=== PATIENT | female | born 1995 | race Hispanic/Latino ===

== ENCOUNTER 2019-01-02 12:31 | Emergency (ER) | payer SELFPAY ==
[2019-01-02 13:09] LABS: Urine Blood NEGATIVE (NEG); Urine Glucose NEGATIVE (NEG); Urine Protein TRACE (NEG); Urine Specific Gravity 1.025 (1.005-1.030)
[2019-01-02 13:57] LABS: Urine Bacteria >50 /HPF (<20); Urine Culture Reflex Order NOT NEEDED; Urine RBC <5 /HPF (NONE SEEN)
--- NOTE | 2019-01-02 14:09 | ER ---
Nurse's Notes [facility] Name: Ирина Lamar Age: 23 yrs Sex: Female : 1995 Arrival Date: 01/02/2019 Time: 12:34 Bed 16 Private MD: None, None Diagnosis: Nausea and vomiting;Diarrhea, unspecified;Left groin pain Presentation: 01/02 12:40 Presenting complaint: Patient states: Abd pain for 3 days, vomiting and diarrhea la1 started today, denies fevers. Has not had menstrual cycle in 4 weeks, took home preg test 3 days ago which was negative. Transition of care: patient was not received from another setting of care. Onset of symptoms was January 02, 2019. Risk Assessment: Do you want to hurt yourself or someone else? Patient reports no desire to harm self or others. Initial Sepsis Screen: Does the patient meet any 2 criteria? No. Patient's initial sepsis screen is negative. Does the patient have a suspected source of infection? No. Patient's initial sepsis screen is negative. Care prior to arrival: None. 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 - Social history:: Smoking status: Patient/guardian denies using tobacco. - Ebola Screening: : No symptoms or risks identified at this time. Screenin:46 Abuse screen: Denies threats or abuse. Nutritional screening: No deficits noted. tw2 Tuberculosis screening: No symptoms or risk factors identified. Fall Risk None identified. Assessment: 12:45 General: Appears in no apparent distress. obese, well groomed, Behavior is calm, tw2 cooperative, appropriate for age. Pain: Complains of pain in groin. Neuro: Level of Consciousness is awake, alert, obeys commands, Oriented to person, place, time, situation. Cardiovascular: Capillary refill < 3 seconds Patient's skin is warm and dry. Respiratory: Airway is patent Respiratory effort is even, unlabored, Respiratory pattern is regular, symmetrical, Breath sounds are clear bilaterally. GI: Abdomen is round non-distended, obese, Bowel sounds present X 4 quads. Abd is soft X 4 quads Reports nausea. : No signs and/or symptoms were reported regarding the genitourinary system. EENT: No signs and/or symptoms were reported regarding the EENT system. Derm: No signs and/or symptoms reported regarding the dermatologic system. Musculoskeletal: Range of motion: intact in all extremities. 14:04 Reassessment: Patient appears in no apparent distress at this time. No changes from tw2 previously documented assessment. Patient and/or family updated on plan of care and expected duration. Pain level reassessed. Patient is alert, oriented x 3, equal unlabored respirations, skin warm/dry/pink. pt COMPLETED PO CHALLENGE AT THIS TIME, drank 8oz water with no complications. Vital Signs: 12:41 BP 149 / 91; Pulse 103; Resp 18; Temp 97.8; Pulse Ox 98% on R/A; Weight 90.72 kg; la1 Height 5 ft. 1 in. (154.94 cm); Pain 8/10; 14:04 BP 124 / 58; Pulse 82; Resp 17; Pulse Ox 100% on R/A; Pain 0/10; tw2 12:41 Body Mass Index 37.79 (90.72 kg, 154.94 cm) la1 ED Course: 12:34 Patient arrived in ED. mr 12:35 None, None is Private Physician. mr 12:40 Triage completed. la1 12:41 Arm band placed on right wrist. la1 12:43 Poli Clemente PA is PHCP. cp 12:43 Terry Galeano MD is Attending Physician. cp 12:45 Anca Gallo, CHYNA is Primary Nurse. tw2 12:46 Bed in low position. Call light in reach. Adult w/ patient. Pulse ox on. NIBP on. tw2 13:08 Urine --Ancillary (enter results) Sent. tw2 13:08 Urine Dipstick--Ancillary (enter results) Sent. tw2 14:13 No provider procedures requiring assistance completed. Patient did not have IV access tw2 during this emergency room visit. Administered Medications: 14:11 Drug: Zofran 4 mg Route: PO; tw2 14:13 Follow up: Response: No adverse reaction tw2 Outcome: 14:08 Discharge ordered by MD. ojeda 14:13 Discharged to home ambulatory, with significant other. tw2 14:13 Condition: stable 14:13 Discharge instructions given to patient, significant other, Instructed on discharge instructions, the need for admit, medication usage, Demonstrated understanding of instructions, follow-up care, medications, Prescriptions given X 2. 14:13 Patient left the ED. tw2 Signatures: Jessie Talbot Lee, RN RN la1 Poli Clemente PA PA cp Wise, Tara, RN RN tw2
--- NOTE | 2019-01-02 14:09 | EDPHYS ---
Physician Documentation [facility] Name: Ирина Lamar Age: 23 yrs Sex: Female : 1995 Arrival Date: 01/02/2019 Time: 12:34 Bed 16 Private MD: None, None ED Physician Terry Galeano HPI: 01/02 13:30 This 23 yrs old Female presents to ER via Ambulatory with complaints of left cp groin pain. 13:30 The patient presents with left groin pain. Associated signs and symptoms: Pertinent cp positives: diarrhea, nausea, vomiting. 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 - Social history:: Smoking status: Patient/guardian denies using tobacco. - Ebola Screening: : No symptoms or risks identified at this time. ROS: 13:45 Constitutional: Negative for body aches, chills, fever, poor PO intake. cp 13:45 Eyes: Negative for injury, pain, redness, and discharge. cp 13:45 ENT: Negative for drainage from ear(s), ear pain, sore throat, difficulty swallowing, difficulty handling secretions. 13:45 Cardiovascular: Negative for chest pain, palpitations. 13:45 Respiratory: Negative for cough, shortness of breath, wheezing. 13:45 Abdomen/GI: Positive for nausea, vomiting, diarrhea, Negative for abdominal pain, constipation, anorexia, black/tarry stool, rectal bleeding. 13:45 Back: Negative for pain at rest, pain with movement, radiated pain. 13:45 : Negative for urinary symptoms, pelvic pain, vaginal bleeding, vaginal discharge. 13:45 MS/extremity: Positive for pain, of the left groin, Negative for injury or acute deformity, decreased range of motion. 13:45 Skin: Negative for rash. 13:45 Neuro: Negative for altered mental status, dizziness, headache, weakness. 13:45 All other systems are negative. Exam: 13:40 Constitutional: The patient appears in no acute distress, alert, awake, comfortable, cp non-toxic, well developed, well nourished. 13:40 Head/Face: Normocephalic, atraumatic. cp 13:40 Eyes: Periorbital structures: appear normal, Conjunctiva: normal, no exudate, no injection, Sclera: no appreciated abnormality, Lids and lashes: appear normal, bilaterally. 13:40 ENT: External ear(s): are unremarkable, Nose: is normal, Mouth: Lips: moist, Oral mucosa: pink and intact, moist, Posterior pharynx: is normal, airway is patent, no erythema, no exudate. 13:40 Chest/axilla: Inspection: normal, Palpation: is normal, no crepitus, no tenderness. 13:40 Cardiovascular: Rate: normal, Rhythm: regular. 13:40 Respiratory: the patient does not display signs of respiratory distress, Respirations: normal, no use of accessory muscles, no retractions, no splinting, no tachypnea, labored breathing, is not present, Breath sounds: are clear throughout, no decreased breath sounds, no stridor, no wheezing. 13:40 Abdomen/GI: Inspection: abdomen appears normal, Bowel sounds: active, all quadrants, Palpation: abdomen is soft and non-tender, in all quadrants, rebound tenderness, is not appreciated, involuntary guarding, is not appreciated. 13:40 Musculoskeletal/extremity: Extremities: grossly normal except: noted in the left groin: pain, ROM: full passive range of motion, in the left leg, Perfusion: the extremity is normally perfused throughout, Sensation intact. 13:40 Skin: no rash present. Vital Signs: 12:41 BP 149 / 91; Pulse 103; Resp 18; Temp 97.8; Pulse Ox 98% on R/A; Weight 90.72 kg; la1 Height 5 ft. 1 in. (154.94 cm); Pain 8/10; 14:04 BP 124 / 58; Pulse 82; Resp 17; Pulse Ox 100% on R/A; Pain 0/10; tw2 12:41 Body Mass Index 37.79 (90.72 kg, 154.94 cm) la1 MDM: 12:43 Patient medically screened. cp 14:07 Data reviewed: vital signs, nurses notes, lab test result(s), and as a result, I will cp discharge patient. 14:07 Counseling: I had a detailed discussion with the patient and/or guardian regarding: the cp historical points, exam findings, and any diagnostic results supporting the discharge/admit diagnosis, lab results, to return to the emergency department if symptoms worsen or persist or if there are any questions or concerns that arise at home. 01/02 12:55 Order name: Urine Dipstick--Ancillary (enter results); Complete Time: 13:30 eb 01/02 13:30 Interpretation: Normal except: U NIT POSITIVE. cp 01/02 12:55 Order name: Urine --Ancillary (enter results); Complete Time: 13:30 eb 01/02 13:31 Order name: Urine Microscopic Only; Complete Time: 13:58 cp 01/02 13:58 Interpretation: Normal except: UBACT >50; SQEPI 20-50. cp 01/02 13:36 Order name: PO challenge; Complete Time: 14:04 cp Administered Medications: 14:11 Drug: Zofran 4 mg Route: PO; tw2 14:13 Follow up: Response: No adverse reaction tw2 Disposition: 14:20 Co-signature as Attending Physician, Terry Galeano MD. rn Disposition: 01/02/19 14:08 Discharged to Home. Impression: Nausea and vomiting, Diarrhea, unspecified, Left groin pain. - Condition is Stable. - Discharge Instructions: Diarrhea, Adult, Nausea and Vomiting, Adult. - Prescriptions for Ibuprofen 800 mg Oral Tablet - take 1 tablet by ORAL route every 8 hours As needed take with food; 30 tablet. Zofran 4 mg Oral Tablet - take 1 tablet by ORAL route every 12 hours As needed; 20 tablet. - Medication Reconciliation Form, Thank You Letter, Antibiotic Education, Prescription Opioid Use form. - Follow up: Private Physician; When: 1 - 2 days; Reason: Worsening of condition. - Problem is new. - Symptoms have improved. Signatures: Dispatcher [employer] EDTerry Enrique MD MD rn Attema, Lee, RN RN la1 Poli Clemente PA PA cp Wise, Tara, RN RN tw2 Corrections: (The following items were deleted from the chart) 14:13 14:08 01/02/2019 14:08 Discharged to Home. Impression: Nausea and vomiting; Diarrhea, tw2 unspecified; Left groin pain. Condition is Stable. Forms are Medication Reconciliation Form, Thank You Letter, Antibiotic Education, Prescription Opioid Use. Follow up: Private Physician; When: 1 - 2 days; Reason: Worsening of condition. Problem is new. Symptoms have improved. cp
[2019-01-02] MEDS ORDERED: ONDANSETRON 4 MG (ODT) TAB ONE (14:20)
== END 2019-01-02 14:13 | disposition home or self-care (01) ==
LOC: ER 12:31
DX: R19.7 Diarrhea, unspecified (principal); R10.32 Left lower quadrant pain
CPT/HCPCS: 81003; 81015; 81025; 99284